=== PATIENT | male | born 2000 | race Caucasian/White ===

== ENCOUNTER 2023-11-20 10:11 | Outpatient (CLI) | payer SELFPAY ==
[2023-11-20 11:13] LABS: Sperm Immotility 45 % (50-60); Sperm Non-Progressive Motility 5 % (5-10); Sperm Progressive Motility 50 % (31-34); Viscosity Semen Droplets
[2023-11-20 11:14] LABS: Pathology Referral Yes
[2023-11-20 11:16] LABS: Side 1 71; Side 2 71; Side WITHIN 10% 0
== END 2023-11-20 10:12 | disposition home or self-care (01) ==
PROVIDERS: Visit Provider Nurse Practitioner Women's Health
DX: N46.9 Male infertility, unspecified (principal)
CPT/HCPCS: 80503; 89320